=== PATIENT | female | born 1945 | race Caucasian/White ===

== ENCOUNTER 2019-05-02 10:49 | Emergency (ER) | payer OTHER ==
[~2019-05-02] VITALS: Ht 157.5 cm; Wt 73.9 kg
[2019-05-02] MEDS ORDERED: METFORMIN HCL500 MG (11:07)
[2019-05-02] MEDS ORDERED: VERAPAMIL ER240 MG (11:07)
[2019-05-02] MEDS ORDERED: AVAPRO150 MG (11:07)
== END 2019-05-02 17:00 | disposition home or self-care (01) ==
LOC: ER 10:49
DX: R19.7 Diarrhea, unspecified (principal)